=== PATIENT | male | born 1960 ===

== ENCOUNTER → 2018-03-18 | Outpatient (CLI) | payer BC, OTHER ==
--- NOTE | 2018-03-18 14:14 | DIAGNOSTIC IMAGING REPORT ---
R KNEE 4 OR MORE CLINICAL HISTORY: 58 years-old Male presenting with RIGHT KNEE PAIN. TECHNIQUE: Frontal, sunrise, tunnel, and lateral views of the right knee were obtained as well as frontal view of the bilateral knees in standing position. COMPARISON: 12/12/2015. FINDINGS: Frontal view of the bilateral knees in standing position demonstrates symmetric knee joints. No joint space loss. No osseous abnormality of the left knee. Dedicated radiographs of the right knee demonstrate no patellar subluxation. No acute fracture or malalignment. No advanced degenerative change. Small knee joint effusion. IMPRESSION: 1. No acute osseous injury or advanced degenerative change. 2. Small right knee joint effusion. Electronically signed by: Víctor Singletary M.D. 03/18/2018 2:13 PM Dictated Date/Time: 03/18/2018 2:11 PM
== END | disposition home or self-care (01) ==
LOC: C.RDSM 13:34
PROVIDERS: ATTEND Internal Medicine
DX: M25.561 Pain in right knee (principal); M25.461 Effusion, right knee